=== PATIENT | female | born 1990 | race Caucasian/White ===

== ENCOUNTER 2017-03-06 08:36 | Emergency (ER) | payer OTHER ==
[~2017-03-06] VITALS: Ht 160 cm; Wt 73.0 kg
[~2017-03-06 08:36] MED LIST: DEPO150I IM
[2017-03-06 08:37] VITALS: BP 136/77; PULSE 73; RESP 16; TEMP 97.7; O2SAT 100
[2017-03-06] MEDS ORDERED: ANTICRE6 (08:55)
[2017-03-06] MEDS ORDERED: BIRTH CONTROL (08:55)
[2017-03-06] MEDS ORDERED: DRYS20SO (08:55)
[2017-03-06] MEDS ORDERED: METR28.4 TOPICAL (08:55)
[2017-03-06] MEDS ORDERED: TOPI200T7 PO (08:55)
[2017-03-06] MEDS ORDERED: SODIUM CHLORIDE 0.9% FLUSH 10 ML FLUSH IV FLUSH PRN (09:00)
[2017-03-06 09:09] LABS: GLUCOSE,URINE NEG (NEG); KETONE, URINE NEG (NEG); NITRITE,URINE NEG (NEG); PH, URINE 5.5 (5.0-8.5)
[2017-03-06 09:10] LABS: BLOOD, URINE TRACE (NEG)
[2017-03-06 09:14] LABS: AUTOMATED NEUTROPHIL # 6.6 TH/MM3 (1.8-7.7); BASOPHIL # 0.1 TH/MM3 (0-0.2); BASOPHIL % 0.7 % (0.0-2.0); EOSINOPHIL # 0.1 TH/MM3 (0-0.4); EOSINOPHIL % 0.7 % (0.0-4.0); HEMATOCRIT 40.9 % (35.0-46.0); HEMO FLAGS DIFF FINAL; LYMPH % 15.1 % (9.0-44.0); LYMPHOCYTE # 1.3 TH/MM3 (1.0-4.8); MEAN CELL VOLUME 88.6 FL (80.0-100.0); MEAN CORPUSCULAR HEMOGLOBIN 30.6 PG (27.0-34.0); MEAN CORPUSCULAR HGB CONC 34.5 % (32.0-36.0); MONO % 3.5 % (0.0-8.0); PLATELET COUNT 195 TH/MM3 (150-450); RED BLOOD COUNT 4.61 MIL/MM3 (4.00-5.30); RED CELL DISTRIBUTION WIDTH 11.9 % (11.6-17.2); WHITE BLOOD COUNT 8.4 TH/MM3 (4.0-11.0)
[2017-03-06] MEDS ORDERED: SODIUM CHLOR 0.9% 1000 ML INJ 1,000 ML IV ONE (09:15)
[2017-03-06] MEDS ORDERED: ONDANSETRON HCL 4 MG/2 ML VIAL IV PUSH ONE (09:15)
[2017-03-06] MEDS ORDERED: KETOROLAC TROMETHAMINE 30 MG/ML (IVP) VIAL IV PUSH ONE (09:15)
[2017-03-06 09:22] VITALS: O2SAT 98
[2017-03-06 09:22] LABS: METHOD OF COLLECTION CLEAN CATCH; URINE COLOR YELLOW (YELLW/STRAW)
[2017-03-06 09:23] LABS: BACTERIA, URINE FEW /hpf; COMMENT (UR) CULT NOT INDICATED; CULTURE IF INDICATED CULT NOT INDICATED; SQUAMOUS EPITHELIAL CELL URINE 0-5 /hpf (0-5)
[2017-03-06 10:22] LABS: ANION GAP 7 MEQ/L (5-15); BICARBONATE 20.7 MEQ/L (21.0-32.0); BLOOD UREA NITROGEN 14 MG/DL (7-18); CHLORIDE 111 MEQ/L (98-107); POTASSIUM 4.1 MEQ/L (3.5-5.1); SODIUM (NA) 139 MEQ/L (136-145)
[2017-03-06 10:25] LABS: ALT (GPT) 16 U/L (10-53); GLOMERULAR FILTRATION RATE 92 ML/MIN (>89)
[2017-03-06 10:26] LABS: TOTAL BILIRUBIN ADULT 0.3 MG/DL (0.2-1.0)
[2017-03-06 10:27] LABS: ALKALINE PHOSPHATASE 53 U/L (45-117)
--- NOTE | 2017-03-06 10:28 | PD ---
HPI Chief Complaint: Abdominal Pain Time Seen by Provider: 08:42 Travel History International Travel<30 days: No Contact w/Intl Traveler<30days: No Traveled to known affect area: No History of Present Illness HPI This is a 26-year-old female who has a remote history of ovarian cysts who presents to the emergency department having been at work when she had sudden onset of right lower pelvic pain, constant, sharp, feeling like a pressure in her lower abdomen. She says her last menstrual cycle was about 3 weeks ago. She is on oral contraceptive pills. She denies any vaginal bleeding or vaginal discharge. She's had 2 sexual partners in the last 6 months. She denies any diarrhea, constipation, fevers, chills or dysuria. She has had some nausea but no vomiting. She has had an appendectomy and a cholecystectomy in the past. [facility] Past Medical History Anxiety: Yes Depression: Yes ( DIAGNOSED 04/05) Diminished Hearing: No Gastrointestinal Disorders: Yes (IRRITABLE BOWEL SYNDROME) GERD: Yes Genitourinary: Yes (FREQUENT UTI'S) Headaches: Yes Hypertension: Yes Medical other: Yes (ovaron cysts) Reproductive: Yes (HPV STAGE 2, COLONOSCOPY 2013) Migraines: Yes Shingles: Yes Tetanus Vaccination: < 5 Years Influenza Vaccination: Yes ?: Unknown LMP: 3 weeks ago : 0 Ovarian Cysts: Yes (BILATERAL) Past Surgical History Appendectomy: Yes Cholecystectomy: Yes Social History Alcohol Use: Yes (SOCIALLY) Tobacco Use: No Substance Use: No Allergies-Medications (Allergen,Severity, Reaction): Coded Allergies: cephalexin (Unverified Allergy, Intermediate, Hives, 03/06/17) - TO ARMS Reported Meds & Prescriptions Reported Meds & Active Scripts Active Reported [Antibiotic] Metronidazole Topical 1 % Gel 1 Applic TOPICAL DAILY Drysol Topical (Aluminum Chloride) 20% Soln [ Control] Topiramate 200 Mg Tab 200 Mg PO DAILY Review of Systems Except as stated in HPI: all other systems reviewed are Neg Physical Exam Narrative GENERAL: Resting comfortably. SKIN: Focused skin assessment warm and dry. HEAD: Atraumatic. Normocephalic. EYES: Pupils equal and round. No injection or drainage. ENT: Moist mucous membranes NECK: Trachea midline. CARDIOVASCULAR: Regular rate and rhythm. No murmur appreciated. RESPIRATORY: Clear to auscultation. Breath sounds equal bilaterally. GASTROINTESTINAL: Abdomen soft, tender to palpation in the right lower quadrant with no rebound or guarding. 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 MUSCULOSKELETAL: No obvious deformities. NEUROLOGICAL: Awake and alert. No obvious cranial nerve deficits. Moving all extremities. PSYCHIATRIC: Appropriate mood and affect; insight and judgment normal. Data Data Last Documented VS Vital Signs Date Time Temp Pulse Resp B/P (MAP) Pulse Ox O2 Delivery O2 Flow Rate FiO2 03/06/17 10:49 47 16 92/58 (69) 100 Room Air 03/06/17 08:37 97.7 Orders Orders Complete Blood Count With Diff (03/06/17 08:56) Comprehensive Metabolic Panel (03/06/17 08:56) Lipase (03/06/17 08:56) Urinalysis - C+S If Indicated (03/06/17 08:56) Iv Access Insert/Monitor (03/06/17 08:56) Ecg Monitoring (03/06/17 08:56) Oximetry (03/06/17 08:56) Sodium Chloride 0.9% Flush (Ns Flush) (03/06/17 09:00) Ed Urine Pregnancytest Poc (03/06/17 08:56) Wet Prep Profile (03/06/17 08:56) Gc And Chlamydia Pcr (03/06/17 08:56) Ketorolac Inj (Toradol Inj) (03/06/17 09:15) Ondansetron Inj (Zofran Inj) (03/06/17 09:15) Sodium Chlor 0.9% 1000 Ml Inj (Ns 1000 M (03/06/17 09:15) Morphine Inj (Morphine Inj) (03/06/17 10:30) Ct Abd/Pel W Iv Contrast(Rout) (03/06/17 ) Al-Mag Hy-Si 40-40-4 Mg/Ml Liq (Mag-Al P (03/06/17 11:15) Lidocaine 2% Viscous (Xylocaine 2% Visco (03/06/17 11:15) Trgaf-Qyvsfz-Lrhcge-Pb Liq ( Liq (03/06/17 11:15) Iohexol 350 Inj (Omnipaque 350 Inj) (03/06/17 11:50) Labs Laboratory Tests Test 03/06/17 09:00 03/06/17 09:05 03/06/17 10:20 Urine Collection Type CLEAN CATCH Urine Color YELLOW Urine Turbidity SLIGHT Urine pH 5.5 Urine Specific [place] 1.014 Urine Protein NEG mg/dL Urine Glucose (UA) NEG mg/dL Urine Ketones NEG mg/dL Urine Occult Blood TRACE Urine Nitrite NEG Urine Bilirubin NEG Urine Leukocyte Esterase NEG Urine RBC 4-9 /hpf Urine Squamous Epithelial Cells 0-5 /hpf Urine Amorphous Sediment MOD Urine Bacteria FEW /hpf Microscopic Urinalysis Comment CULT NOT INDICATED Urine Collection Time 0900 White Blood Count 8.4 TH/MM3 Red Blood Count 4.61 MIL/MM3 Hemoglobin 14.1 GM/DL Hematocrit 40.9 % Mean Corpuscular Volume 88.6 FL Mean Corpuscular Hemoglobin 30.6 PG Mean Corpuscular Hemoglobin Concent 34.5 % Red Cell Distribution Width 11.9 % Platelet Count 195 TH/MM3 Mean Platelet Volume 8.3 FL Neutrophils (%) (Auto) 80.0 % Lymphocytes (%) (Auto) 15.1 % Monocytes (%) (Auto) 3.5 % Eosinophils (%) (Auto) 0.7 % Basophils (%) (Auto) 0.7 % Neutrophils # (Auto) 6.6 TH/MM3 Lymphocytes # (Auto) 1.3 TH/MM3 Monocytes # (Auto) 0.3 TH/MM3 Eosinophils # (Auto) 0.1 TH/MM3 Basophils # (Auto) 0.1 TH/MM3 CBC Comment DIFF FINAL Differential Comment Blood Urea Nitrogen 14 MG/DL Creatinine 0.77 MG/DL Random Glucose 85 MG/DL Total Protein 7.2 GM/DL Albumin 3.6 GM/DL Calcium Level 8.3 MG/DL Alkaline Phosphatase 53 U/L Aspartate Amino Transf (AST/SGOT) 12 U/L Alanine Aminotransferase (ALT/SGPT) 16 U/L Total Bilirubin 0.3 MG/DL Sodium Level 139 MEQ/L Potassium Level 4.1 MEQ/L Chloride Level 111 MEQ/L Carbon Dioxide Level 20.7 MEQ/L Anion Gap 7 MEQ/L Estimat Glomerular Filtration Rate 92 ML/MIN Lipase 110 U/L Clue Cells (Wet Prep) NONE SEEN Vaginal Trichomonas (Wet Prep) NONE SEEN Vaginal Yeast (Wet Prep) NONE SEEN MDM Medical Decision Making Medical Screen Exam Complete: Yes Emergency Medical Condition: Yes Interpretation(s) afebrile, no tachycardia No leukocytosis Electrolytes are reassuring at Urinalysis demonstrates scant red blood cells Wet prep is negative Differential Diagnosis Ruptured ovarian cyst, perforated ulcer, gastritis, peptic ulcer disease, pancreatitis, colitis Narrative Course This is a 26-year-old female who presents to the emergency department with pain predominantly in the right pelvis that started abruptly at work. Her symptoms are consistent with an ovarian cyst rupture. She has a benign exam. Labs are obtained which were all reassuring. Urinalysis is negative for infection. I has a small amount of blood but on pelvic exam a looks like she is about to come on her menstrual cycle and there is some blood at the os. She was tender on her pelvic exam right over the right adnexa. After receiving morphine she started to complain of more pain mostly in the upper abdomen. I gave her a GI cocktail and obtained a CT abdomen and pelvis which is benign except for a 3 cm ovarian cyst on the left. 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 Diagnosis Primary Impression: Ovarian cyst Qualified Codes: N83.202 - Unspecified ovarian cyst, left side Patient Instructions: General Instructions Additional Instructions: If you develop severe or worsening abdominal pain, fever>100.4, persistent vomiting or inability to eat or drink return to the emergency department immediately. Follow up with your primary care physician in 1-2 days for a check-up. Med/Other Pt SpecificInfo: Prescription(s) given Scripts Ondansetron Odt (Zofran Odt) 4 Mg Tab 4 MG SL Q6HR Y for Nausea/Vomiting, #15 TAB 0 Refills Prov: Monica Proctor MD 03/06/17 Tramadol (Tramadol) 50 Mg Tab 50 MG PO Q6H Y for PAIN, #14 TAB 0 Refills Prov: Monica Proctor MD 03/06/17 Disposition: 01 DISCHARGE HOME Condition: Stable Monica Proctor MD Mar 06, 2017 10:28
[2017-03-06] MEDS ORDERED: MORPHINE SULFATE 4 MG/ML INJ IV PUSH ONE (10:30)
[2017-03-06 10:33] LABS: AST (GOT) 12 U/L (15-37)
[2017-03-06 10:49] VITALS: BP 92/58; PULSE 47; RESP 16; O2SAT 100
[2017-03-06] MEDS ORDERED: ATROPINE/SCOPOLAM/HYOSCYAM/PB ELIXIR 10 ML CUP PO ONE (11:15)
[2017-03-06] MEDS ORDERED: LIDOCAINE VISCOUS 2% SOLN 15 ML UDC SWISH-SWAL ONE (11:15)
[2017-03-06] MEDS ORDERED: ALUMINUM/MAGNESIUM/SIMETH 30 ML CUP PO ONE (11:15)
[2017-03-06] MEDS ORDERED: IOHEXOL 350 MG/ML 10 ML VIAL (for RAD DIAG) IVCONTRAST ONE (11:50)
--- NOTE | 2017-03-06 12:03 | RADRPT ---
EXAM DATE/TIME: 03/06/2017 11:48 [place] COMPARISON: CT ABDOMEN & PELVIS W CONTRAST, November 21, 2012, 14:41 report. INDICATIONS : Bilateral lower quadrant and right pelvic pain. IV CONTRAST: 85 cc Omnipaque 350 (iohexol) IV ORAL CONTRAST: No oral contrast ingested. RADIATION DOSE: 9.73 CTDIvol (mGy) MEDICAL HISTORY : Gastroesophageal reflux disease. Irritable bowel syndrome. Ovarian cysts. SURGICAL HISTORY : Appendectomy. Cholecystectomy. ENCOUNTER: Initial ACUITY: 1 day PAIN SCALE: 10/10 LOCATION: Bilateral lower quadrant TECHNIQUE: Volumetric scanning of the abdomen and pelvis was performed. Using automated exposure control and ad justment of the mA and/or kV according to patient size, radiation dose was kept as low as reasonably achievable to obtain optimal diagnostic quality images. DICOM format image data is available electro nically for review and comparison. FINDINGS: LOWER LUNGS: The visualized lower lungs are clear. LIVER: Homogeneous density without lesion. There is no dilation of the biliary tree. Gallbladder is surgica lly absent. SPLEEN: Normal size without lesion. PANCREAS: Within normal limits. KIDNEYS: Normal in size and shape. There is no mass, stone or hydronephrosis. ADRENAL GLANDS: Within normal limits. VASCULAR: There is no aortic aneurysm. BOWEL/MESENTERY: The stomach, small bowel, and colon demonstrate no acute abnormality. There is no free intraperitone al air or fluid. ABDOMINAL WALL: Within normal limits. RETROPERITONEUM: There is no lymphadenopathy. BLADDER: No wall thickening or mass. REPRODUCTIVE: Within normal limits. Prominent left ovarian cyst measuring 3.4 cm. INGUINAL: There is no lymphadenopathy or hernia. MUSCULOSKELETAL: Within normal limits for patient age. CONCLUSION: Prominent left ovarian cyst otherwise unremarkable CT scan of the abdomen and pelvis with IV and oral contrast. The patient has had a cholecystectomy and appendectomy. No free fluid or mass is noted. David Lombardo MD on March 06, 2017 at 12:00 Board Certified Radiologist. This report was verified electronically.
[2017-03-06] MEDS ORDERED: TRAM50TA PO (12:13)
[2017-03-06] MEDS ORDERED: ZOFR4TAB3 SL (12:13)
[2017-03-06 12:21] VITALS: BP 101/65; PULSE 59; RESP 16; O2SAT 100
[2017-03-06 14:14] LABS: CHLAMYDIA PCR NOT DETECTED (NOT DETECT); NEISSERIA PCR NOT DETECTED (NOT DETECT)
== END 2017-03-06 12:29 | disposition home or self-care (01) ==
LOC: PHED 08:36
DX: N83.202 Unspecified ovarian cyst, left side (principal)
CPT/HCPCS: 74177; 80053; 81001; 83690; 84703; 85025; 87210; 87491; 87591; 96361; 96374; 96375; 99285; J1885; J2270; J2405; J7030; Q9967

== ENCOUNTER 2017-06-18 18:11 | Emergency (ER) | payer OTHER ==
[~2017-06-18] VITALS: Ht 160 cm; Wt 70.0 kg
[~2017-06-18 18:11] MED LIST changes: +ANTICRE6; +BIRTH CONTROL; -DEPO150I IM; +DRYS20SO; +METR28.4 TOPICAL; +TOPI200T7 PO; +TRAM50TA PO; +ZOFR4TAB3 SL
[2017-06-18 18:15] VITALS: BP 140/80; PULSE 76; RESP 16; TEMP 98.7; O2SAT 99
[2017-06-18] MEDS ORDERED: SODIUM CHLOR 0.9% 1000 ML INJ 1,000 ML IV SCH (19:28)
[2017-06-18] MEDS ORDERED: MORPHINE SULFATE 2 MG/ML INJ IV PUSH ONE (19:30)
[2017-06-18] MEDS ORDERED: SODIUM CHLORIDE 0.9% FLUSH 10 ML FLUSH IV FLUSH PRN (19:30)
[2017-06-18] MEDS ORDERED: ONDANSETRON HCL 4 MG/2 ML VIAL IVP ONE (19:30)
[2017-06-18 19:43] LABS: AUTOMATED NEUTROPHIL # 4.7 TH/MM3 (1.8-7.7); BASOPHIL # 0.1 TH/MM3 (0-0.2); BASOPHIL % 0.8 % (0.0-2.0); EOSINOPHIL # 0.1 TH/MM3 (0-0.4); EOSINOPHIL % 0.9 % (0.0-4.0); HEMATOCRIT 45.1 % (35.0-46.0); LYMPHOCYTE # 2.1 TH/MM3 (1.0-4.8); MEAN CELL VOLUME 90.2 FL (80.0-100.0); MEAN CORPUSCULAR HGB CONC 33.3 % (32.0-36.0); MEAN PLATELET VOLUME 8.2 FL (7.0-11.0); MONO % 3.4 % (0.0-8.0); MONOCYTE # 0.2 TH/MM3 (0-0.9); NEUT % 65.9 % (16.0-70.0); PLATELET COUNT 265 TH/MM3 (150-450); RED BLOOD COUNT 4.99 MIL/MM3 (4.00-5.30); RED CELL DISTRIBUTION WIDTH 12.3 % (11.6-17.2); WHITE BLOOD COUNT 7.2 TH/MM3 (4.0-11.0)
[2017-06-18 19:46] VITALS: RESP 16; O2SAT 100
[2017-06-18 19:47] LABS: CHLORIDE 108 MEQ/L (98-107); SODIUM (NA) 139 MEQ/L (136-145)
[2017-06-18 19:50] LABS: CALCIUM 9.4 MG/DL (8.5-10.1)
[2017-06-18 19:51] LABS: ALBUMIN 4.2 GM/DL (3.4-5.0); BICARBONATE 22.9 MEQ/L (21.0-32.0); BLOOD UREA NITROGEN 13 MG/DL (7-18); GLUCOSE,RANDOM 86 MG/DL (74-106); LIPASE 120 U/L (73-393)
[2017-06-18 19:54] LABS: ALT (GPT) 23 U/L (10-53); AST (GOT) 16 U/L (15-37); CREATININE 0.75 MG/DL (0.50-1.00); GLOMERULAR FILTRATION RATE 95 ML/MIN (>89)
[2017-06-18 19:56] LABS: TOTAL BILIRUBIN ADULT 0.4 MG/DL (0.2-1.0); TOTAL PROTEIN 8.2 GM/DL (6.4-8.2)
[2017-06-18 19:57] LABS: ALKALINE PHOSPHATASE 59 U/L (45-117)
--- NOTE | 2017-06-18 20:10 | PD ---
HPI Chief Complaint: GI Complaint Time Seen by Provider: 19:17 Travel History International Travel<30 days: No Contact w/Intl Traveler<30days: No Traveled to known affect area: No History of Present Illness HPI This is a 26-year-old female who has a history of an appendectomy and cholecystectomy who presents to the emergency department with right sided abdominal discomfort that's been going on for 2 days, constant, dull, moderate severity, associated with multiple episodes of vomiting. She denies any fevers or chills. She's not had any diarrhea or constipation. She has very little appetite. She's never had pain like this before. She has no known sick contacts. She denies any dysuria or hematuria and denies any vaginal discharge. [facility] Past Medical History Anxiety: Yes Depression: Yes ( DIAGNOSED 04/05) Diminished Hearing: No Gastrointestinal Disorders: Yes (IRRITABLE BOWEL SYNDROME) GERD: Yes Genitourinary: Yes (FREQUENT UTI'S) Headaches: Yes Hypertension: Yes Reproductive: Yes (OVARIAN CYSTS) Migraines: Yes Shingles: Yes Tetanus Vaccination: < 5 Years Influenza Vaccination: No ?: Not LMP: 06/08/17 : 0 Ovarian Cysts: Yes (BILATERAL) Past Surgical History Appendectomy: Yes Cholecystectomy: Yes Social History Alcohol Use: Yes (OCCASIONAL) Tobacco Use: No Substance Use: No Allergies-Medications (Allergen,Severity, Reaction): Coded Allergies: cephalexin (Unverified Allergy, Intermediate, Hives, 06/18/17) - TO ARMS Reported Meds & Prescriptions Reported Meds & Active Scripts Active Zofran Odt (Ondansetron Odt) 4 Mg Tab 4 Mg SL Q6HR PRN Tramadol (Tramadol HCl) 50 Mg Tab 50 Mg PO Q6H PRN Reported [Antibiotic] Metronidazole Topical 1 % Gel 1 Applic TOPICAL DAILY Drysol Topical (Aluminum Chloride) 20% Soln [ Control] Topiramate 200 Mg Tab 200 Mg PO DAILY Review of Systems Except as stated in HPI: all other systems reviewed are Neg Physical Exam Narrative GENERAL:Well appearing, no acute distress SKIN: Focused skin assessment warm and dry. HEAD: Atraumatic. Normocephalic. EYES: Pupils equal and round. No injection or drainage. ENT: Moist mucous membranes NECK: Trachea midline. CARDIOVASCULAR: Regular rate and rhythm. No murmur appreciated. RESPIRATORY: Clear to auscultation. Breath sounds equal bilaterally. GASTROINTESTINAL: Abdomen soft, tender to palpation in the right and left upper quadrants and epigastrium with no rebound or guarding. MUSCULOSKELETAL: No obvious deformities. NEUROLOGICAL: Awake and alert. No obvious cranial nerve deficits. Moving all extremities. PSYCHIATRIC: Appropriate mood and affect; insight and judgment normal. Data Data Last Documented VS Vital Signs Date Time Temp Pulse Resp B/P (MAP) Pulse Ox O2 Delivery O2 Flow Rate FiO2 06/18/17 20:31 57 16 113/68 (83) 100 Room Air 06/18/17 18:15 98.7 Orders Orders Complete Blood Count With Diff (06/18/17 19:28) Comprehensive Metabolic Panel (06/18/17 19:28) Lipase (06/18/17 19:28) Urinalysis - C+S If Indicated (06/18/17 19:28) Iv Access Insert/Monitor (06/18/17 19:28) Ecg Monitoring (06/18/17 19:28) Oximetry (06/18/17 19:28) Ondansetron Inj (Zofran Inj) (06/18/17 19:30) Sodium Chlor 0.9% 1000 Ml Inj (Ns 1000 M (06/18/17 19:28) Sodium Chloride 0.9% Flush (Ns Flush) (06/18/17 19:30) Morphine Inj (Morphine Inj) (06/18/17 19:30) Promethazine Inj (Phenergan Inj) (06/18/17 20:45) Ed Urine Pregnancytest Poc (06/18/17 20:53) Labs Laboratory Tests Test 06/18/17 19:30 06/18/17 20:05 White Blood Count 7.2 TH/MM3 Red Blood Count 4.99 MIL/MM3 Hemoglobin 15.0 GM/DL Hematocrit 45.1 % Mean Corpuscular Volume 90.2 FL Mean Corpuscular Hemoglobin 30.0 PG Mean Corpuscular Hemoglobin Concent 33.3 % Red Cell Distribution Width 12.3 % Platelet Count 265 TH/MM3 Mean Platelet Volume 8.2 FL Neutrophils (%) (Auto) 65.9 % Lymphocytes (%) (Auto) 29.0 % Monocytes (%) (Auto) 3.4 % Eosinophils (%) (Auto) 0.9 % Basophils (%) (Auto) 0.8 % Neutrophils # (Auto) 4.7 TH/MM3 Lymphocytes # (Auto) 2.1 TH/MM3 Monocytes # (Auto) 0.2 TH/MM3 Eosinophils # (Auto) 0.1 TH/MM3 Basophils # (Auto) 0.1 TH/MM3 CBC Comment DIFF FINAL Differential Comment Blood Urea Nitrogen 13 MG/DL Creatinine 0.75 MG/DL Random Glucose 86 MG/DL Total Protein 8.2 GM/DL Albumin 4.2 GM/DL Calcium Level 9.4 MG/DL Alkaline Phosphatase 59 U/L Aspartate Amino Transf (AST/SGOT) 16 U/L Alanine Aminotransferase (ALT/SGPT) 23 U/L Total Bilirubin 0.4 MG/DL Sodium Level 139 MEQ/L Potassium Level 4.0 MEQ/L Chloride Level 108 MEQ/L Carbon Dioxide Level 22.9 MEQ/L Anion Gap 8 MEQ/L Estimat Glomerular Filtration Rate 95 ML/MIN Lipase 120 U/L Urine Color YELLOW Urine Turbidity CLEAR Urine pH 6.0 Urine Specific [place] 1.016 Urine Protein NEG mg/dL Urine Glucose (UA) NEG mg/dL Urine Ketones NEG mg/dL Urine Occult Blood NEG Urine Nitrite NEG Urine Bilirubin NEG Urine Leukocyte Esterase NEG Urine WBC 0-2 /hpf Urine Squamous Epithelial Cells 0-5 /hpf Microscopic Urinalysis Comment CULT NOT INDICATED MDM Medical Decision Making Medical Screen Exam Complete: Yes Emergency Medical Condition: Yes Interpretation(s) afebrile, no tachycardia, normotensive no leukocytosis Electrolytes are reassuring Lipase is 120 Urinalysis is negative for infection CT abdomen and pelvis: Moderate amount of hemoperitoneum with no obvious source Differential Diagnosis No leukocytosis Electrolytes are reassuring Lipase is 120 Urinalysis is negative for infection Narrative Course This is a 26-year-old female who presents to the emergency department with abdominal discomfort mostly in the epigastrium associated with multiple episodes of vomiting. This been going on for 2 days. She has a history of appendectomy and cholecystectomy. Labs are all reassuring and test is negative. She has a fairly benign exam. We discussed the risks versus benefits of CT imaging. Patient has had multiple CT studies in the past and we agreed to defer at this time as is unlikely there is a surgical etiology of her symptoms. She has a history of irritable bowel syndrome which may be the etiology of her symptoms. If she feels worse she can return to the emergency department at which time we'll do further imaging. She feels better after pain control and IV hydration. Patient will be discharged with symptomatic management. Diagnosis Primary Impression: Abdominal pain Qualified Codes: R10.9 - Unspecified abdominal pain Patient Instructions: General Instructions Additional Instructions: If you develop severe or worsening abdominal pain, fever>100.4, persistent vomiting or inability to eat or drink return to the emergency department immediately. Follow up with your primary care physician in 1-2 days for a check-up. Med/Other Pt SpecificInfo: Prescription(s) given Scripts Promethazine (Phenergan) 25 Mg Tablet 25 MG PO Q6H Y for NAUSEA OR VOMITING, #14 TAB 0 Refills Prov: Monica Proctor MD 06/18/17 Ranitidine (Ranitidine) 150 Mg Tab 150 MG PO BID for Heartburn Management, #60 TAB 0 Refills Prov: Monica Proctor MD 06/18/17 Dicyclomine (Bentyl) 10 Mg Cap 10 MG PO TID Y for Bowel Management, #15 CAP 0 Refills Prov: Monica Proctor MD 06/18/17 Disposition: 01 DISCHARGE HOME Condition: Stable [place]inca Proctor MD Jun 18, 2017 20:10
[2017-06-18 20:12] LABS: BILIRUBIN, URINE NEG (NEG); BLOOD, URINE NEG (NEG); GLUCOSE,URINE NEG (NEG); KETONE, URINE NEG (NEG); NITRITE,URINE NEG (NEG); URINE LEUKOCYTE ESTERASE NEG (NEG)
[2017-06-18 20:16] LABS: URINE COLOR YELLOW (YELLW/STRAW)
[2017-06-18 20:17] LABS: SQUAMOUS EPITHELIAL CELL URINE 0-5 /hpf (0-5); WBC, URINE 0-2 /hpf (0-5)
[2017-06-18 20:31] VITALS: BP_SYST 113; BP_SYST 13; BP_DIAS 68; PULSE 57; RESP 16; O2SAT 100
[2017-06-18] MEDS ORDERED: PROMETHAZINE INJ 25 MG/ML VIAL IM ONE (20:45)
[2017-06-18] MEDS ORDERED: RANI150T PO (21:50)
[2017-06-18] MEDS ORDERED: PROM25TA10 PO (21:50)
[2017-06-18] MEDS ORDERED: DICY10 PO (21:50)
[2017-06-18 22:18] VITALS: BP 99/62
== END 2017-06-18 22:20 | disposition home or self-care (01) ==
LOC: PHED 18:11
DX: R10.13 Epigastric pain (principal); R11.10 Vomiting, unspecified; F41.9 Anxiety disorder, unspecified; F32.9 Major depressive disorder, single episode, unspecified; K21.9 Gastro-esophageal reflux disease without esophagitis; I10 Essential (primary) hypertension; Z87.19 Personal history of other diseases of the digestive system; Z79.899 Other long term (current) drug therapy; Z88.8 Allergy status to other drugs, medicaments and biological substances
CPT/HCPCS: 80053; 81001; 83690; 84703; 85025; 96361; 96372; 96374; 96375; 99284; J2270; J2405; J2550; J7030

== ENCOUNTER 2017-07-31 18:55 | Emergency (ER) | payer OTHER ==
[~2017-07-31] VITALS: Ht 160 cm; Wt 69.0 kg
[~2017-07-31 18:55] MED LIST changes: +DICY10 PO; +PROM25TA10 PO; +RANI150T PO
[2017-07-31 19:28] VITALS: BP 112/77; PULSE 107; RESP 17; TEMP 98; O2SAT 98
[2017-07-31] MEDS ORDERED: PROT40TA PO (19:39)
[2017-07-31] MEDS ORDERED: BENZ100 PO (20:52)
[2017-07-31] MEDS ORDERED: AZIT250T3 PO (20:52)
--- NOTE | 2017-07-31 20:54 | PD ---
HPI Chief Complaint: Cold / Flu Symptoms Time Seen by Provider: 20:23 Travel History International Travel<30 days: No Contact w/Intl Traveler<30days: No Traveled to known affect area: No History of Present Illness HPI This is a 26-year-old female here with a reported cough for one month. Cough recently became productive. She reports subjective fevers. Symptoms severity is moderate. No aggravating or alleviating factors. PFSH Past Medical History Anxiety: Yes Depression: Yes ( DIAGNOSED 04/05) Diminished Hearing: No Gastrointestinal Disorders: Yes GERD: Yes Genitourinary: Yes (FREQUENT UTI'S) Headaches: Yes Hypertension: Yes Reproductive: Yes (OVARIAN CYSTS) Immunizations Current: Yes Migraines: Yes Shingles: Yes Tetanus Vaccination: < 5 Years Influenza Vaccination: No ?: Not LMP: 2-7-18 : 0 Ovarian Cysts: Yes (BILATERAL) Past Surgical History Appendectomy: Yes Cholecystectomy: Yes Other Surgery: Yes (endoscopy) Social History Alcohol Use: Yes (OCCASIONAL) Tobacco Use: No Substance Use: No Allergies-Medications (Allergen,Severity, Reaction): Coded Allergies: cephalexin (Unverified Allergy, Intermediate, Hives, 07/31/17) - TO ARMS Reported Meds & Prescriptions Reported Meds & Active Scripts Active Reported Protonix (Pantoprazole Sodium) 40 Mg Tab 40 Mg PO DAILY [ Control] Topiramate 200 Mg Tab 200 Mg PO DAILY Review of Systems Except as stated in HPI: all other systems reviewed are Neg General / Constitutional: Positive: Fever Eyes: No: Visual changes HENT: No: Headaches Cardiovascular: No: Chest Pain or Discomfort Respiratory: Positive: Cough Gastrointestinal: No: Abdominal Pain Genitourinary: No: Dysuria Physical Exam Narrative GENERAL: A 4-year-old male Non toxic appearing. SKIN: Warm and dry. No rash HEAD: Normocephalic. EYES: No injection or drainage. Ear/nose/throat: No TM erythema clear nasal discharge. Mild pharyngeal erythema without tonsillar hypertrophy or exudate. NECK: Supple. No meningismus CARDIOVASCULAR: Regular rate and rhythm RESPIRATORY: Breath sounds equal bilaterally. No accessory muscle use. Rhonchorous cough GASTROINTESTINAL: Abdomen soft, non-tender, nondistended. MUSCULOSKELETAL: No cyanosis, or edema. BACK: No CVA tenderness. Data Data Last Documented VS Vital Signs Date Time Temp Pulse Resp B/P (MAP) Pulse Ox O2 Delivery O2 Flow Rate FiO2 07/31/17 19:28 98.0 107 17 112/77 (89) 98 MDM Medical Decision Making Medical Screen Exam Complete: Yes Emergency Medical Condition: Yes Differential Diagnosis Bursitis, pneumonia, influenza Narrative Course This is a 26-year-old female here with reported cough for one month. She is nontoxic appearing. On exam she is noted to have a rhonchorous cough. Given the duration of her symptoms. Patient was treated with azithromycin for bronchitis. Diagnosis Primary Impression: Bronchitis Referrals: Primary Care Physician Departure Forms: Tests/Procedures, Work Release Enter return to work date: Aug 04, 2017 Additional Instructions: Antibiotics as directed. Cough medication as needed. Stay well hydrated. Scripts Benzonatate (Tessalon Perles) 100 Mg Cap 200 MG PO TID Y for COUGH, #14 CAP 0 Refills Prov: Angelica Warner 07/31/17 Azithromycin (Azithromycin) 250 Mg Tab 250 MG PO DIRECTED for Infection, #6 TAB 0 Refills Take 2 tabs (500 mg) on day 1 then 1 tab daily x 4 days. Prov: Angelica Warner 07/31/17 Disposition: 01 DISCHARGE HOME Condition: Stable Angelica Warner Jul 31, 2017 20:53
== END 2017-07-31 21:20 | disposition home or self-care (01) ==
LOC: PHEFT 18:55
DX: J40 Bronchitis, not specified as acute or chronic (principal); F32.9 Major depressive disorder, single episode, unspecified; I10 Essential (primary) hypertension; Z88.1 Allergy status to other antibiotic agents
CPT/HCPCS: 99283

== ENCOUNTER 2017-10-12 12:53 | Emergency (ER) | payer OTHER ==
[~2017-10-12] VITALS: Ht 160 cm; Wt 68.0 kg
[~2017-10-12 12:53] MED LIST changes: -ANTICRE6; +AZIT250T3 PO; +BENZ100 PO; -DICY10 PO; -DRYS20SO; -METR28.4 TOPICAL; -PROM25TA10 PO; +PROT40TA PO; -RANI150T PO; -TRAM50TA PO; -ZOFR4TAB3 SL
[2017-10-12 12:58] VITALS: BP 117/82; PULSE 70; RESP 16; TEMP 98.1; O2SAT 100
--- NOTE | 2017-10-12 13:17 | PD ---
HPI Chief Complaint: Abdominal Pain Time Seen by Provider: 13:12 Travel History International Travel<30 days: No Contact w/Intl Traveler<30days: No Traveled to known affect area: No History of Present Illness HPI 27-year-old female patient with history of ovarian cysts, abnormal Pap smear, status post cholecystectomy and appendectomy, presents to the ER today because she states that she is having pelvic pains which are currently a 7 out of 10. She states it is intermittent in nature. She denies any nausea, vomiting, diarrhea, unusual vaginal discharge, fevers, or other symptoms. Modifying Factors: None Associated Signs & Symptoms: Pelvic pains Risk Factors: History of abnormal Pap smear, ovarian cyst PFSH Past Medical History Anxiety: Yes Depression: Yes ( DIAGNOSED 04/05) Diminished Hearing: No Gastrointestinal Disorders: Yes GERD: Yes Genitourinary: Yes (FREQUENT UTI'S) Headaches: Yes Hypertension: Yes Reproductive: Yes (OVARIAN CYSTS) Immunizations Current: Yes Migraines: Yes Shingles: Yes : 0 Ovarian Cysts: Yes (BILATERAL) Past Surgical History Appendectomy: Yes Cholecystectomy: Yes Other Surgery: Yes (endoscopy) Social History Alcohol Use: Yes (OCCASIONAL) Tobacco Use: No Substance Use: No Allergies-Medications (Allergen,Severity, Reaction): Coded Allergies: cephalexin (Unverified Allergy, Intermediate, Hives, 10/12/17) - TO ARMS Reported Meds & Prescriptions Reported Meds & Active Scripts Active Tessalon Perles (Benzonatate) 100 Mg Cap 200 Mg PO TID PRN Azithromycin 250 Mg Tab 250 Mg PO DIRECTED Take 2 tabs (500 mg) on day 1 then 1 tab daily x 4 days. Reported Protonix (Pantoprazole Sodium) 40 Mg Tab 40 Mg PO DAILY [ Control] Topiramate 200 Mg Tab 200 Mg PO DAILY Review of Systems Except as stated in HPI: all other systems reviewed are Neg Physical Exam Narrative GENERAL: Well-developed young female patient currently in mild distress. Awake and oriented 3. SKIN: Focused skin assessment warm/dry. HEAD: Atraumatic. Normocephalic. EYES: Pupils equal and round. No scleral icterus. No injection or drainage. ENT: No nasal bleeding or discharge. Mucous membranes pink and moist. NECK: Trachea midline. No JVD. CARDIOVASCULAR: Regular rate and rhythm. No murmur appreciated. RESPIRATORY: No accessory muscle use. Clear to auscultation. Breath sounds equal bilaterally. GASTROINTESTINAL: Abdomen soft, non-tender, nondistended. Hepatic and splenic margins not palpable. GENITOURINARY: Normal external genitalia without lesions or erythema. Vaginal vault without blood, small amount of whitish greenish drainage. Cervical os was closed without drainage. No cervical motion tenderness. Uterus nontender and nonenlarged. Mild right adnexal tenderness without masses. MUSCULOSKELETAL: No obvious deformities. No clubbing. No cyanosis. No edema. NEUROLOGICAL: Awake and alert. No obvious cranial nerve deficits. Motor grossly within normal limits. Normal speech. PSYCHIATRIC: Appropriate mood and affect; insight and judgment normal. Data Data Last Documented VS Vital Signs Date Time Temp Pulse Resp B/P (MAP) Pulse Ox O2 Delivery O2 Flow Rate FiO2 10/12/17 12:58 98.1 70 16 117/82 (94) 100 Orders Orders Urinalysis - C+S If Indicated (10/12/17 13:03) Ed Urine Pregnancytest Poc (10/12/17 13:03) Urine Culture (10/12/17 13:08) Gc And Chlamydia Pcr (10/12/17 13:46) Wet Prep Profile (10/12/17 13:46) Us Pelvis Comp W Doppler (10/12/17 13:46) Ed Discharge Order (10/12/17 15:07) Labs Laboratory Tests Test 10/12/17 13:08 10/12/17 13:49 Urine Collection Type CLEAN CATCH Urine Color YELLOW Urine Turbidity CLEAR Urine pH 6.0 Urine Specific [place] 1.025 Urine Protein NEG mg/dL Urine Glucose (UA) NEG mg/dL Urine Ketones NEG mg/dL Urine Occult Blood NEG Urine Nitrite NEG Urine Bilirubin NEG Urine Urobilinogen 0.2 MG/DL Urine Leukocyte Esterase NEG Urine WBC 0-2 /hpf Urine Squamous Epithelial Cells 0-5 /hpf Urine Amorphous Sediment FEW Urine Bacteria MOD /hpf Microscopic Urinalysis Comment CULTURE INDICATED Urine Collection Time 1308 Clue Cells (Wet Prep) NONE SEEN Vaginal Trichomonas (Wet Prep) NONE SEEN Vaginal Yeast (Wet Prep) NONE SEEN MDM Medical Decision Making Medical Screen Exam Complete: Yes Emergency Medical Condition: Yes Medical Record Reviewed: Yes Interpretation(s) Laboratory Tests Test 10/12/17 13:08 10/12/17 13:49 Urine Bacteria MOD /hpf (NONE) Differential Diagnosis Pelvic pains: Ovarian cyst versus UTI versus dysmenorrhea versus cervicitis/TOA versus ovarian torsion Narrative Course Lab work did not show significant UTI. Wet prep is negative. Pelvic exam was fairly unremarkable. Ultrasound did not show any signs of acute processes, no ovarian torsion, no ovarian cyst. At this point, my plan would be to release her with follow-up to primary care physician. Return for any worsening in pain or new symptoms as needed. She should also follow-up with her AUTOMATIC DEVELOPER regarding ongoing SUPERINTENDENT [employer]AREHOU[employer] issues. The plan was discussed with her and she states understanding. Diagnosis Primary Impression: Pelvic pain in female Med/Other Pt SpecificInfo: Prescription(s) given Scripts Ibuprofen (Ibuprofen) 600 Mg Tab 600 MG PO Q6H Y for Pain/Inflammation, #20 TAB 0 Refills Prov: Estrella Cornell MD 10/12/17 Disposition: 01 DISCHARGE HOME Condition: Stable Estrella Cornell MD Oct 12, 2017 13:17
[2017-10-12 13:20] LABS: BILIRUBIN, URINE NEG (NEG); BLOOD, URINE NEG (NEG); GLUCOSE,URINE NEG (NEG); KETONE, URINE NEG (NEG); NITRITE,URINE NEG (NEG); URINE COLOR YELLOW (YELLW/STRAW); URINE LEUKOCYTE ESTERASE NEG (NEG)
[2017-10-12 13:25] LABS: AMORPHOUS SEDIMENT, URINE FEW; BACTERIA, URINE MOD /hpf; SQUAMOUS EPITHELIAL CELL URINE 0-5 /hpf (0-5); WBC, URINE 0-2 /hpf (0-5)
--- NOTE | 2017-10-12 15:02 | RADRPT ---
EXAM DATE/TIME: 10/12/2017 14:22 [facility] COMPARISON: No previous studies available for comparison. INDICATIONS : Pelvic pain; evaluate for torsion. MEDICAL HISTORY : Alzheimer's Pelvic pain. SURGICAL HISTORY : Appendectomy. Cholecystectomy. ENCOUNTER: Initial ACUITY: 1 day PAIN SCORE: 7/10 LOCATION: Bilateral pelvis MEASUREMENTS: UTERUS: 6.6 x 4.4 x 3.3 cm ENDOMETRIAL STRIPE: 13 mm RIGHT OVARY: 2.9 x 1.7 x 2.2 cm LEFT OVARY: 3.0 x 2.7 x 1.6 cm FINDINGS: UTERUS: The myometrium has homogeneous echotexture without mass. RIGHT OVARY: Ovary contains no mass or significant cystic lesion. LEFT OVARY: Ovary contains no mass or significant cystic lesion. MISCELLANEOUS: No free fluid. CONCLUSION: Negative exam. Endometrial stripe is slightly prominent but likely related to phase of menses Osman Montalvo MD on October 12, 2017 at 14:59 Board Certified Radiologist. This report was verified electronically.
[2017-10-12] MEDS ORDERED: IBUP-232 PO (15:08)
== END 2017-10-12 15:13 | disposition home or self-care (01) ==
LOC: PHED 12:53
DX: R10.2 Pelvic and perineal pain (principal); F41.9 Anxiety disorder, unspecified; F32.9 Major depressive disorder, single episode, unspecified; K21.9 Gastro-esophageal reflux disease without esophagitis; I10 Essential (primary) hypertension; Z79.899 Other long term (current) drug therapy
CPT/HCPCS: 76856; 81001; 84703; 87086; 87210; 87491; 87591; 93975

== ENCOUNTER 2017-12-15 17:55 | Emergency (ER) | payer SELFPAY ==
[~2017-12-15] VITALS: Ht 160 cm; Wt 68.7 kg
[~2017-12-15 17:55] MED LIST changes: +IBUP-232 PO
[2017-12-15 18:03] VITALS: BP 113/80; PULSE 75; RESP 16; TEMP 98.2; O2SAT 99
[2017-12-15] MEDS ORDERED: FOLI800T PO (18:18)
--- NOTE | 2017-12-15 18:28 | PD ---
HPI Chief Complaint: Abdominal Pain Time Seen by Provider: 18:15 Travel History International Travel<30 days: No Contact w/Intl Traveler<30days: No Traveled to known affect area: No History of Present Illness HPI 27-year-old female complains of low abdominal pelvic pain and nausea. Patient states that symptoms started yesterday. Patient states that her menstruation period started yesterday. Patient states the pain and cramping pain and sharp pain localized to lower abdomen pelvic area. Patient denies any pain radiation. Patient denies any fever chills. Patient states that she has nausea but no vomiting or diarrhea. Patient denies any dysuria frequency. Patient denies any back pain. Patient has history of HPV status post colposcopy recently. Patient also has history of ovarian cyst. Patient is on control pills. Patient status post cholecystectomy and appendectomy in the past. PFSH Past Medical History Anxiety: Yes Depression: Yes ( DIAGNOSED 04/05) Diminished Hearing: No Gastrointestinal Disorders: Yes GERD: Yes Genitourinary: Yes (FREQUENT UTI'S) Headaches: Yes Hypertension: Yes Reproductive: Yes (OVARIAN CYSTS) Immunizations Current: Yes Migraines: Yes Shingles: Yes ?: Not LMP: 12/13/17 : 0 Ovarian Cysts: Yes (BILATERAL) Past Surgical History Appendectomy: Yes Cholecystectomy: Yes Other Surgery: Yes (endoscopy) Social History Alcohol Use: Yes (OCCASIONAL) Tobacco Use: No Substance Use: No Allergies-Medications (Allergen,Severity, Reaction): Coded Allergies: cephalexin (Unverified Allergy, Intermediate, Hives, 12/15/17) INFANT- TO ARMS Reported Meds & Prescriptions Reported Meds & Active Scripts Active Ibuprofen 600 Mg Tab 600 Mg PO Q6H PRN Reported Folic Acid 0.8 Mg Tab 800 Mcg PO DAILY Protonix (Pantoprazole Sodium) 40 Mg Tab 40 Mg PO DAILY [ Control] Topiramate 200 Mg Tab 200 Mg PO BID Review of Systems General / Constitutional: No: Fever Eyes: No: Visual changes HENT: No: Headaches Cardiovascular: No: Chest Pain or Discomfort Respiratory: No: Shortness of Breath Gastrointestinal: Positive: Abdominal Pain Genitourinary: Positive: Pelvic Pain, No: Dysuria Musculoskeletal: No: Pain Skin: No Rash Neurologic: No: Weakness Psychiatric: No: Depression Endocrine: No: Polydipsia Hematologic/Lymphatic: No: Easy Bruising Physical Exam Narrative GENERAL: Well-nourished, well-developed patient. SKIN: Focused skin assessment warm/dry. HEAD: Normocephalic. EYES: No scleral icterus. No injection or drainage. NECK: Supple, trachea midline. No JVD or lymphadenopathy. CARDIOVASCULAR: Regular rate and rhythm without murmurs, gallops, or rubs. RESPIRATORY: Breath sounds equal bilaterally. No accessory muscle use. GASTROINTESTINAL: Abdomen soft, nondistended. Patient has mild to moderate tenderness in palpation lower abdomen suprapubic area. No rebound tenderness. No mass. MUSCULOSKELETAL: No cyanosis, or edema. BACK: Nontender without obvious deformity. No CVA tenderness. CASE MANAGEMENT DIRECTOR exam: Patient has small amount of blood in the vaginal vault. No cervical motion tenderness. Uterus is nonenlarged with mild to moderate tenderness on palpation. No adnexal mass or tenderness. Data Data Last Documented VS Vital Signs Date Time Temp Pulse Resp B/P (MAP) Pulse Ox O2 Delivery O2 Flow Rate FiO2 12/15/17 20:45 66 16 111/65 (80) 100 Room Air 12/15/17 18:03 98.2 Orders Orders Complete Blood Count With Diff (12/15/17 18:23) Comprehensive Metabolic Panel (12/15/17 18:23) Urinalysis - C+S If Indicated (12/15/17 18:23) Ct Abd/Pel W Iv Contrast(Rout) (12/15/17 18:23) Iv Access Insert/Monitor (12/15/17 18:23) Ed Urine Pregnancytest Poc (12/15/17 18:23) Gc And Chlamydia Pcr (12/15/17 18:52) Wet Prep Profile (12/15/17 18:52) Iohexol 350 Inj (Omnipaque 350 Inj) (12/15/17 20:33) Ketorolac Inj (Toradol Inj) (12/15/17 21:00) Ondansetron Odt (Zofran Odt) (12/15/17 21:00) Labs Laboratory Tests Test 12/15/17 18:45 12/15/17 18:59 White Blood Count 8.2 TH/MM3 Red Blood Count 4.54 MIL/MM3 Hemoglobin 14.4 GM/DL Hematocrit 42.8 % Mean Corpuscular Volume 94.1 FL Mean Corpuscular Hemoglobin 31.6 PG Mean Corpuscular Hemoglobin Concent 33.6 % Red Cell Distribution Width 12.2 % Platelet Count 254 TH/MM3 Mean Platelet Volume 8.4 FL Neutrophils (%) (Auto) 65.5 % Lymphocytes (%) (Auto) 28.1 % Monocytes (%) (Auto) 4.5 % Eosinophils (%) (Auto) 0.9 % Basophils (%) (Auto) 1.0 % Neutrophils # (Auto) 5.3 TH/MM3 Lymphocytes # (Auto) 2.3 TH/MM3 Monocytes # (Auto) 0.4 TH/MM3 Eosinophils # (Auto) 0.1 TH/MM3 Basophils # (Auto) 0.1 TH/MM3 CBC Comment DIFF FINAL Differential Comment Urine Color YELLOW Urine Turbidity CLEAR Urine pH 6.0 Urine Specific [place] GREATER/EQUAL 1.030 Urine Protein NEG mg/dL Urine Glucose (UA) NEG mg/dL Urine Ketones NEG mg/dL Urine Occult Blood LARGE Urine Nitrite NEG Urine Bilirubin NEG Urine Urobilinogen 0.2 MG/DL Urine Leukocyte Esterase NEG Urine RBC 25-49 /hpf Urine WBC 3-5 /hpf Urine Squamous Epithelial Cells 0-5 /hpf Urine Bacteria OCC /hpf Microscopic Urinalysis Comment CULT NOT INDICATED Blood Urea Nitrogen 20 MG/DL Creatinine 0.81 MG/DL Random Glucose 81 MG/DL Total Protein 8.1 GM/DL Albumin 4.1 GM/DL Calcium Level 8.8 MG/DL Alkaline Phosphatase 53 U/L Aspartate Amino Transf (AST/SGOT) 8 U/L Alanine Aminotransferase (ALT/SGPT) 16 U/L Total Bilirubin 0.4 MG/DL Sodium Level 140 MEQ/L Potassium Level 3.4 MEQ/L Chloride Level 109 MEQ/L Carbon Dioxide Level 20.9 MEQ/L Anion Gap 10 MEQ/L Estimat Glomerular Filtration Rate 86 ML/MIN Clue Cells (Wet Prep) NONE SEEN Vaginal Trichomonas (Wet Prep) NONE SEEN Vaginal Yeast (Wet Prep) NONE SEEN MDM Medical Decision Making Medical Screen Exam Complete: Yes Emergency Medical Condition: Yes Interpretation(s) 2046 PM. CBC within normal limits. Potassium 3.4. Bicarb 20.9. BUN 20. UA positive for RBC. Wet prep negative. 21:50 PM. Last Impressions Abdomen/Pelvis CT 12/15/17 3252 Signed Impressions: CONCLUSION: No acute abnormality is identified to explain the clinical symptoms. Differential Diagnosis Differential diagnosis includes cervicitis, PID, UTI, pyelonephritis, nephrolithiasis, ovarian cyst, ovarian torsion, ectopic . Narrative Course 27-year-old female with low abdominal pelvic pain. Diagnosis Primary Impression: Dysmenorrhea Patient Instructions: General Instructions Additional Instructions: Take medication as needed for pain. Follow-up with therapeutic recreation specialist. Return if worse. Med/Other Pt SpecificInfo: Prescription(s) given Scripts Hydrocodone-Acetaminophen ([place]) 5 Mg-325 Mg Tab 1 TAB PO Q6H Y for PAIN, #12 TAB 0 Refills Prov: Josue Salas MD 12/15/17 Meloxicam (Mobic) 15 Mg Tab 15 MG PO DAILY for Pain, #20 TAB 0 Refills Prov: Josue Salas MD 12/15/17 Disposition: 01 DISCHARGE HOME Condition: Stable Josue Salas MD Dec 15, 2017 18:28
[2017-12-15 18:49] LABS: BILIRUBIN, URINE NEG (NEG); BLOOD, URINE LARGE (NEG); GLUCOSE,URINE NEG (NEG); KETONE, URINE NEG (NEG); NITRITE,URINE NEG (NEG); URINE COLOR YELLOW (YELLW/STRAW); URINE LEUKOCYTE ESTERASE NEG (NEG)
[2017-12-15 18:50] LABS: AUTOMATED NEUTROPHIL # 5.3 TH/MM3 (1.8-7.7); BASOPHIL # 0.1 TH/MM3 (0-0.2); EOSINOPHIL # 0.1 TH/MM3 (0-0.4); EOSINOPHIL % 0.9 % (0.0-4.0); HEMATOCRIT 42.8 % (35.0-46.0); HEMOGLOBIN 14.4 GM/DL (11.6-15.3); LYMPH % 28.1 % (9.0-44.0); LYMPHOCYTE # 2.3 TH/MM3 (1.0-4.8); MEAN CELL VOLUME 94.1 FL (80.0-100.0); MEAN CORPUSCULAR HEMOGLOBIN 31.6 PG (27.0-34.0); MEAN CORPUSCULAR HGB CONC 33.6 % (32.0-36.0); MEAN PLATELET VOLUME 8.4 FL (7.0-11.0); MONO % 4.5 % (0.0-8.0); MONOCYTE # 0.4 TH/MM3 (0-0.9); NEUT % 65.5 % (16.0-70.0); PLATELET COUNT 254 TH/MM3 (150-450); RED BLOOD COUNT 4.54 MIL/MM3 (4.00-5.30); RED CELL DISTRIBUTION WIDTH 12.2 % (11.6-17.2); WHITE BLOOD COUNT 8.2 TH/MM3 (4.0-11.0)
[2017-12-15 18:53] LABS: BACTERIA, URINE OCC /hpf; SQUAMOUS EPITHELIAL CELL URINE 0-5 /hpf (0-5)
[2017-12-15 18:58] LABS: CHLORIDE 109 MEQ/L (98-107); SODIUM (NA) 140 MEQ/L (136-145)
[2017-12-15 19:00] LABS: CALCIUM 8.8 MG/DL (8.5-10.1)
[2017-12-15 19:01] LABS: ALBUMIN 4.1 GM/DL (3.4-5.0); BICARBONATE 20.9 MEQ/L (21.0-32.0); GLUCOSE,RANDOM 81 MG/DL (74-106)
[2017-12-15 19:02] LABS: BLOOD UREA NITROGEN 20 MG/DL (7-18)
[2017-12-15 19:04] LABS: ALT (GPT) 16 U/L (10-53); AST (GOT) 8 U/L (15-37); CREATININE 0.81 MG/DL (0.50-1.00); GLOMERULAR FILTRATION RATE 86 ML/MIN (>89)
[2017-12-15 19:06] LABS: TOTAL BILIRUBIN ADULT 0.4 MG/DL (0.2-1.0); TOTAL PROTEIN 8.1 GM/DL (6.4-8.2)
[2017-12-15 19:07] LABS: ALKALINE PHOSPHATASE 53 U/L (45-117)
[2017-12-15] MEDS ORDERED: IOHEXOL 350 MG/ML 10 ML VIAL (for RAD DIAG) IVCONTRAST ONE (20:33)
[2017-12-15 20:45] VITALS: BP 111/65; PULSE 66; RESP 16; O2SAT 100
[2017-12-15] MEDS ORDERED: ONDANSETRON ODT 4 MG TAB PO ONE (21:00)
[2017-12-15] MEDS ORDERED: KETOROLAC TROMETHAMINE 30 MG/ML (IVP) VIAL IV PUSH ONE (21:00)
--- NOTE | 2017-12-15 21:45 | RADRPT ---
EXAM DATE: 12/15/2017 8:36 PM EDT AGE/SEX: 27 years / Female INDICATIONS: Pelvic pain. Nausea. CLINICAL DATA: This is the patient's initial encounter. Patient reports that signs and symptoms have been present for 1 week and indicates a pain score of 7/10. MEDICAL/SURGICAL HISTORY: Gastroesophageal reflux disease. Hypertension. Cholecystectomy. Josef endectomy. ORAL CONTRAST: No oral contrast ingested. RADIATION DOSE: 7.87 CTDI (mGy) COMPARISON: [facility], CT ABDOMEN & PELVIS W CONTRAST, 03/06/2017. . TECHNIQUE: Multiple contiguous axial images were obtained through the abdomen and pelvis following b olus infusion of 75 ml Omnipaque 350 (iohexol) nonionic water-soluble contrast as a single exam dos e. No oral contrast ingested. Using automated exposure control and adjustment of the mA and/or kV ac cording to patient size, radiation dose was kept as low as reasonably achievable to obtain optimal di agnostic quality images. DICOM format image data is available electronically for review and comparis on. FINDINGS: Lower chest: No acute abnormality is identified. Hepatobiliary: No focal liver lesion is identified. Hepatic vasculature demonstrates no abnormality. Gallbladder is absent with clips in the gallbladder fossa. There is stable prominence of the central intrahepatic bile ducts. The common bile duct does not appear dilated. Kidneys: No hydronephrosis, stone, or mass. Adrenal Glands: Within normal limits. Spleen: Within normal limits. Pancreas: Within normal limits. Vascular: The aorta is nonaneurysmal. Bowel/Mesentery: The stomach and small bowel demonstrate no abnormality. No acute colon abnormality i s seen. There is no free intraperitoneal air or fluid. There are clips at the base of the cecum relat ed to prior appendectomy. Abdominal Wall: No hernia is visualized. Retroperitoneum: No lymphadenopathy. Bladder: No wall thickening or mass. Reproductive: Within normal limits. Inguinal: No lymphadenopathy or hernia. Musculoskeletal: No acute osseous abnormality is identified. CONCLUSION: No acute abnormality is identified to explain the clinical symptoms. Electronically signed by: Filipe Hester MD 12/15/2017 9:44 PM EDT
[2017-12-15] MEDS ORDERED: MOBI15TA PO (21:55)
[2017-12-15] MEDS ORDERED: NORC5TAB PO (21:55)
== END 2017-12-15 22:08 | disposition home or self-care (01) ==
LOC: PHED 17:55
DX: N94.6 Dysmenorrhea, unspecified (principal); R11.0 Nausea; F41.8 Other specified anxiety disorders; K21.9 Gastro-esophageal reflux disease without esophagitis; I10 Essential (primary) hypertension; N83.202 Unspecified ovarian cyst, left side; N83.201 Unspecified ovarian cyst, right side; Z90.49 Acquired absence of other specified parts of digestive tract
CPT/HCPCS: 74177; 80053; 81001; 84703; 85025; 87210; 87491; 87591; 96374; 99284; J1885; Q9967